=== PATIENT | female | born 1950 | race Caucasian/White ===

== ENCOUNTER 2024-11-26 13:11 | Emergency (ER) | payer MEDICARE, SELFPAY ==
[2024-11-26] VITALS (13 sets, daily range): BP systolic 155–201; BP diastolic 73–95; PULSE 76–99; RESP 12–18; TEMP 36.4–36.9; O2SAT 97–100
[2024-11-26 13:28] LABS: Add Manual Diff / Slide Review NO; Basophils Absolute Auto 0 /uL (0-100); Basophils Percent Auto 0.8 % (0-2); Eosinophils Absolute Auto 100 /uL (0-450); Hematocrit 36.9 % (36-46); Hemoglobin 12.9 g/dL (12.0-16.0); Lymphocytes Absolute Auto 1500 /uL (1100-4500); Lymphocytes Percent Auto 24.9 % (25-40); Mean Corpuscular HGB Conc 34.8 % (30-36); Mean Corpuscular Hemoglobin 29.9 PG (26-34); Monocytes Absolute Auto 400 /uL (0-900); Monocytes Percent Auto 6.5 % (3-14); Neutrophils Absolute Auto 4000 /uL (1500-7000); Neutrophils Percent Auto 66.8 % (50-75); Platelet Count 201 X10^3/uL (150-400); Red Cell Distribution Width 13.7 % (11.6-14.8); White Blood Cell Count 5.9 X10^3/uL (4.5-11.0)
--- NOTE | 2024-11-26 13:30 | EKG_ITS ---
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
[2024-11-26] MEDS: ONDANSETRON 4 MG/2 ML INJ IV (13:33)
[2024-11-26 13:44] LABS: Alanine Aminotransferase 22 IU/L (<35); Albumin 4.5 g/dL (3.5-5.0); Albumin Globulin Ratio 1.5 (1.0-2.8); Alkaline Phosphatase 141 U/L (38-126); Aspartate Aminotransferase 30 IU/L (14-36); BUN Creatinine Ratio 30.8 (6-22); Bilirubin Total 0.7 mg/dL (0.2-1.3); Blood Urea Nitrogen 28 mg/dL (7-17); Calcium 9.1 mg/dL (8.4-10.2); Carbon Dioxide 24 mmol/L (22-32); Chloride 102 mmol/L (98-107); Estimated Glomerular Filt Rate > 60 mL/min (>60); Globulin 3.1 g/dL (1.7-4.1); Glucose 161 mg/dL (70-99); HEMOLYSIS < 15 (0-50); Lipase 155 U/L (23-300); Potassium 3.8 mmol/L (3.4-5.1); Sodium 137 mmol/L (137-145); Total Protein 7.6 g/dL (6.3-8.2)
--- NOTE | 2024-11-26 14:15 | ED.NAVMDI ---
HPI - Nausea/Vomiting/Diarrhea General Chief complaint: Nausea/Vomiting/Diarrhea Stated complaint: N/V Time Seen by Provider: 11/26/24 13:25 Source: EMS Mode of arrival: EMS History of Present Illness HPI Narrative: Patient brought here by ambulance from [facility]. Patient has history of dementia. She is awake alert oriented x2. She is at baseline behavior according to [facility] nursing staff to give report to our nursing staff here in the department. Patient had episode of vomiting 30 minutes prior to arrival. No other complaints. At this time patient denies any chest pain abdominal pain back pain. No headache. She is resting comfortably. She is not agitated. Denies any problem urinating. No fall or injury according to [facility]. Related Data Previous Rx's Medication Instructions Recorded ondansetron 4 mg disintegrating 4 mg PO Q8H PRN nausea and 11/26/24 tablet vomiting #20 tabs Allergies Allergy/AdvReac Type Severity Reaction Status Date / Time cefaclor [From Ceclor] Allergy Unknown Verified 11/26/24 13:33 cephradine Allergy Unknown Verified 11/26/24 13:33 erythromycin base Allergy Unknown Verified 11/26/24 13:33 ibuprofen Allergy Unknown Verified 11/26/24 13:33 meperidine [From Demerol] Allergy Unknown Verified 11/26/24 13:33 naproxen Allergy Unknown Verified 11/26/24 13:33 oxycodone Allergy Unknown Verified 11/26/24 13:33 Penicillins Allergy Unknown Verified 11/26/24 13:33 spironolactone Allergy Unknown Verified 11/26/24 13:33 Sulfa (Sulfonamide Allergy Unknown Verified 11/26/24 13:33 Antibiotics) Review of Systems Review of Systems Narrative: GENERAL: Negative chills, fatigue, malaise, fever, sweats. HEENT: Negative sinus pain, ear pain, sore throat RESPIRATORY: Negative dyspnea, cough CARDIOVASCULAR: Negative chest pain, palpitations GASTROINTESTINAL: Positive vomiting, nausea, negative abdominal pain : Negative dysuria, frequency, hematuria MUSCULOSKELETAL: Negative muscle or bony pain SKIN: Negative rash, skin lesions NEUROLOGIC: Negative weakness, numbness ROS Unobtainable: All systems reviewed & are unremarkable except as noted in HPI and below Patient History Medical History (Updated 11/26/24 @ 16:54 by Subhash Bliss MD) Alzheimer dementia Exam Narrative Exam Narrative: GENERAL: in no distress, not toxic not dyspneic HEAD: Normocephalic. EYES: Pupils equal round ENT: Mucous membranes moist. NECK: Trachea midline. CARDIOVASCULAR: Regular rate and rhythm RESPIRATORY: Clear to auscultation. Breath sounds equal bilaterally. No wheezes, rales, or rhonchi. GASTROINTESTINAL: Abdomen soft, non-tender no CVA tenderness. No pain out of portion exam. EXTREMITIES: No gross deformities. BACK: No flank tenderness. NEURO: AOx1. Clear speech SKIN: Warm and dry PSYCH: Not anxious, is cooperative Initial Vital Signs Initial Vital Signs: Vital Signs Temperature 97.5 F L 11/26/24 13:16 Pulse Rate 82 11/26/24 13:16 Respiratory Rate 16 11/26/24 13:16 Blood Pressure 189/90 H 11/26/24 13:16 Pulse Oximetry 98 11/26/24 13:16 Oxygen Delivery Method Room Air 11/26/24 13:16 Course Orders Ordered: Discontinued Medications Fosfomycin Tromethamine (Fosfomycin 3 Gm Packet) 3 gm PO NOW ONE Stop: 11/26/24 16:51 Last Admin: 11/26/24 16:58 Dose: 3 gm Documented By: LENA Sodium Chloride (Normal Saline 0.9%) 1,000 mls @ 1,000 mls/hr IV BOLUS ONE Stop: 11/26/24 15:11 Last Infusion: 11/26/24 15:39 Dose: Infused Documented By: Admin: 11/26/24 14:19 Dose: 1,000 mls/hr Documented By: LENA Ondansetron HCl (Ondansetron 4 Mg/2 Ml Inj) 4 mg IV NOW PRN PRN Reason: Nausea And Vomiting Last Admin: 11/26/24 13:33 Dose: 4 mg Documented By: LENA Ondansetron HCl (Ondansetron 4 Mg Odt) 4 mg PO NOW PRN PRN Reason: Nausea And Vomiting Vital Signs Vital signs: Vital Signs - 8 hr 11/26/24 13:16 11/26/24 13:16 11/26/24 13:30 Temperature 97.5 F L Pulse Rate 82 79 76 Respiratory Rate 16 Blood Pressure 189/90 H Pulse Oximetry 98 98 98 Oxygen Delivery Method Room Air 11/26/24 13:30 11/26/24 14:00 11/26/24 14:00 Temperature Pulse Rate 78 Respiratory Rate 12 Blood Pressure 181/86 H 155/73 H Pulse Oximetry 98 Oxygen Delivery Method 11/26/24 14:30 11/26/24 14:30 11/26/24 14:47 Temperature Pulse Rate 95 H 93 H Respiratory Rate 14 Blood Pressure 160/91 H Pulse Oximetry 99 100 Oxygen Delivery Method 11/26/24 14:57 11/26/24 14:57 11/26/24 15:00 Temperature Pulse Rate 89 79 Respiratory Rate Blood Pressure 181/81 H Pulse Oximetry 98 98 Oxygen Delivery Method 11/26/24 15:00 11/26/24 15:30 Temperature Pulse Rate 86 Respiratory Rate Blood Pressure 174/84 H Pulse Oximetry 99 Oxygen Delivery Method MDM - Nausea/Vomiting/Diarrhea Lab Data 11/26/24 13:20 11/26/24 13:20 Labs: Lab Results 11/26/24 11/26/24 11/26/24 Range/Units 13:20 13:25 14:20 WBC 5.9 (4.5-11.0) X10^3/uL RBC 4.30 (4.0-5.2) X10^6/uL Hgb 12.9 (12.0-16.0) g/dL Hct 36.9 (36-46) % MCV 86.0 (80-100) fL MCH 29.9 (26-34) PG MCHC 34.8 (30-36) % RDW 13.7 (11.6-14.8) % Plt Count 201 (150-400) X10^3/uL Neut % (Auto) 66.8 (50-75) % Lymph % (Auto) 24.9 L (25-40) % [place] % (Auto) 6.5 (3-14) % Eos % (Auto) 1.0 L (2-4) % Baso % (Auto) 0.8 (0-2) % Neut # (Auto) 4000 (1222-1297) /uL Lymph # (Auto) 1500 (9044-8468) /uL [place] # (Auto) 400 (0-900) /uL Eos # (Auto) 100 (0-450) /uL Baso # (Auto) 0 (0-100) /uL Sodium 137 (137-145) mmol/L Potassium 3.8 (3.4-5.1) mmol/L Chloride 102 (98-107) mmol/L Carbon Dioxide 24 (22-32) mmol/L BUN 28 H (7-17) mg/dL Creatinine 0.91 (0.52-1.04) mg/dL Estimated GFR > 60 (>60) mL/min BUN/Creatinine Ratio 30.8 H (6-22) Glucose 161 H (70-99) mg/dL Calcium 9.1 (8.4-10.2) mg/dL Total Bilirubin 0.7 (0.2-1.3) mg/dL AST 30 (14-36) IU/L ALT 22 (<35) IU/L Alkaline Phosphatase 141 H (38-126) U/L Total Creatine Kinase 92 (30-135) U/L Troponin I < 0.012 (0.01-0.034) ng/mL Total Protein 7.6 (6.3-8.2) g/dL Albumin 4.5 (3.5-5.0) g/dL Globulin 3.1 (1.7-4.1) g/dL Albumin/Globulin Ratio 1.5 (1.0-2.8) Lipase 155 (23-300) U/L Urine Color Urine Appearance Urine pH (4.5-8.0) Ur Specific [place] (1.000-1.035) Urine Protein (Negative) Urine Glucose (UA) (Negative) g/dL Urine Ketones (NEGATIVE) Urine Occult Blood (Negative) Urine Nitrate (Negative) Urine Bilirubin (NEGATIVE) Urine Urobilinogen (0.2) E.U./dL Ur Leukocyte Esterase (NEGATIVE) Urine RBC (0-5/HPF) Urine WBC (0-5/HPF) Ur Squamous Epith Cells (0-5/HPF) Urine Bacteria (None) Ur Culture Indicated? Vol Urine Centrifuged Chlamy pneumoniae PCR Not detected (Not Detect) Adenovirus (PCR) Not detected (Not Detect) B. pertussis DNA (PCR) Not detected (Not Detect) B.parapertussis DNA PCR Not detected (Not Detecte) Coronavirus OC43 (PCR) Not detected (Not Detect) Coronavirus HKU1 (PCR) Not detected (Not Detect) Coronavirus 229E (PCR) Not detected (Not Detect) SARS-CoV-2 (PCR) Not detected (Not Detecte) Coronavirus NL63 (PCR) Not detected (Not Detect) Human Metapneumovir PCR Not detected (Not Detect) Influenza Type A (PCR) Not detected (Not Detect) Influenza Type B (PCR) Not detected (Not Detect) M. pneumoniae (PCR) Not detected (Not Detect) Parainfluenza 1 (PCR) Not detected (Not Detect) Parainfluenza 2 (PCR) Not detected (Not Detect) Parainfluenza 3 (PCR) Not detected (Not Detect) Parainfluenza 4 (PCR) Not detected (Not Detect) RSV (PCR) Not detected (Not Detect) Entero/Rhino (PCR) Not detected (Not Detect) 11/26/24 Range/Units 15:50 WBC (4.5-11.0) X10^3/uL RBC (4.0-5.2) X10^6/uL Hgb (12.0-16.0) g/dL Hct (36-46) % MCV (80-100) fL MCH (26-34) PG MCHC (30-36) % RDW (11.6-14.8) % Plt Count (150-400) X10^3/uL Neut % (Auto) (50-75) % Lymph % (Auto) (25-40) % [place] % (Auto) (3-14) % Eos % (Auto) (2-4) % Baso % (Auto) (0-2) % Neut # (Auto) (5185-9305) /uL Lymph # (Auto) (2545-3921) /uL [place] # (Auto) (0-900) /uL Eos # (Auto) (0-450) /uL Baso # (Auto) (0-100) /uL Sodium (137-145) mmol/L Potassium (3.4-5.1) mmol/L Chloride (98-107) mmol/L Carbon Dioxide (22-32) mmol/L BUN (7-17) mg/dL Creatinine (0.52-1.04) mg/dL Estimated GFR (>60) mL/min BUN/Creatinine Ratio (6-22) Glucose (70-99) mg/dL Calcium (8.4-10.2) mg/dL Total Bilirubin (0.2-1.3) mg/dL AST (14-36) IU/L ALT (<35) IU/L Alkaline Phosphatase (38-126) U/L Total Creatine Kinase (30-135) U/L Troponin I (0.01-0.034) ng/mL Total Protein (6.3-8.2) g/dL Albumin (3.5-5.0) g/dL Globulin (1.7-4.1) g/dL Albumin/Globulin Ratio (1.0-2.8) Lipase (23-300) U/L Urine Color Yellow Urine Appearance Sl cloudy Urine pH 7.5 (4.5-8.0) Ur Specific [place] 1.015 (1.000-1.035) Urine Protein Negative (Negative) Urine Glucose (UA) Negative (Negative) g/dL Urine Ketones Trace H (NEGATIVE) Urine Occult Blood Trace-intact (Negative) Urine Nitrate Positive H (Negative) Urine Bilirubin Negative (NEGATIVE) Urine Urobilinogen 0.2 (0.2) E.U./dL Ur Leukocyte Esterase 1+ H (NEGATIVE) Urine RBC 0-1/hpf (0-5/HPF) Urine WBC 10-30/hpf H (0-5/HPF) Ur Squamous Epith Cells 0-1 /hpf (0-5/HPF) Urine Bacteria Many (>30) H (None) Ur Culture Indicated? Specimen cultured Vol Urine Centrifuged 10ml (spun) Chlamy pneumoniae PCR (Not Detect) Adenovirus (PCR) (Not Detect) B. pertussis DNA (PCR) (Not Detect) B.parapertussis DNA PCR (Not Detecte) Coronavirus OC43 (PCR) (Not Detect) Coronavirus HKU1 (PCR) (Not Detect) Coronavirus 229E (PCR) (Not Detect) SARS-CoV-2 (PCR) (Not Detecte) Coronavirus NL63 (PCR) (Not Detect) Human Metapneumovir PCR (Not Detect) Influenza Type A (PCR) (Not Detect) Influenza Type B (PCR) (Not Detect) M. pneumoniae (PCR) (Not Detect) Parainfluenza 1 (PCR) (Not Detect) Parainfluenza 2 (PCR) (Not Detect) Parainfluenza 3 (PCR) (Not Detect) Parainfluenza 4 (PCR) (Not Detect) RSV (PCR) (Not Detect) Entero/Rhino (PCR) (Not Detect) Imaging Data CT chest abdomen and pelvis: Radiologist's Impression: [address] [address] [address] Scan Report Signed Patient: Lottie Pinedo I MR#: [id number] : 1950 Acct:[id number] Age/Sex: 74 / F Date of Service: 11/26/24 Loc: ED Accession Number: [id number] Procedure: CT chest abd pel w con Ordering Provider: Subhash Bliss MD PROCEDURE: CT CHEST ABD PEL W CON INDICATIONS: Sepsis TECHNIQUE: After the administration of intravenous contrast, 5 mm thick sections acquired from the lung apices to the symphysis. 5 mm coronal and sagittal reformats were performed, with additional 7 mm MIP reformats through the lungs. For radiation dose reduction, the following was used: automated exposure control, adjustment of mA and/or kV according to patient size. COMPARISON: None. FINDINGS: Image quality: Excellent. CHEST: Lower Neck: No enlarged lymph nodes. Thyroid: Left thyroid nodule measuring 2.7 cm Axillae: No enlarged lymph nodes. Chest Wall: Unremarkable. Lungs and Pleura: No pneumothorax or pleural effusions. No focal pulmonary consolidations. Scattered pulmonary micro nodules measuring 3 mm or less. Heart: Heart size is normal. Small pericardial effusion. Thoracic Vessels: The aorta and pulmonary arteries demonstrate normal size. Atherosclerotic vascular calcifications. Mediastinum and [place]: No enlarged lymph nodes. Esophagus: Possible wall thickening of the GE junction. Small hiatal hernia. ABDOMEN: Liver: No solid mass. Gallbladder: Surgically absent Biliary ducts: No biliary dilation. Pancreas: No ductal dilation. Spleen: Size is within normal limits. Adrenal Glands: No adrenal nodules. Kidneys and Ureters: No hydronephrosis. No solid mass. No complex renal cystic lesion which requires follow up. Stomach and Bowel: Normal colonic caliber, without significant wall thickening. Rectal stool ball measuring up to 7 cm. Significant diverticulosis without definite findings of diverticulitis. Peritoneum: No abnormal intraperitoneal fluid. No free air. Ventral Wall: No significant ventral hernia. Abdominal Nodes: No retroperitoneal or mesenteric adenopathy by size criteria. Vessels: Aorta and inferior vena cava are normal in size. Atherosclerotic vascular calcifications. 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 PELVIS: Pelvic Organs: Unremarkable. Bladder: Urinary bladder wall thickening, asymmetric the right. Pelvic Nodes: No enlarged lymph nodes. Miscellaneous: No inguinal hernias are seen. Bones: No aggressive osseous abnormality. IMPRESSION: 1. Urinary bladder wall thickening, asymmetric on the right side. Recommend correlation for cystitis. 2. Rectal stool ball measuring up to 7 cm, correlate for impaction. 3. Significant diverticulosis without evidence of diverticulitis. 4. Possible wall thickening at the GE junction. This may be from gastric reflux, recommend clinical correlation. Underlying neoplastic process is not definitively excluded. 5. Left thyroid nodule measuring 2.7 cm. Recommend dedicated nonurgent thyroid ultrasound for further evaluation at clinical discretion given advanced dementia. Dictated by: Lucas Simmons M.D. on 11/26/2024 at 15:25 Approved by: Lucas Simmons M.D. on 11/26/2024 at 15:35 [facility] Narrative Medical decision making narrative: Patient brought here by ambulance from [facility]. Patient has history of dementia. She is awake alert oriented x2. She is at baseline behavior according to [facility] nursing staff to give report to our nursing staff here in the department. Patient had episode of vomiting 30 minutes prior to arrival. No other complaints. At this time patient denies any chest pain abdominal pain back pain. No headache. She is resting comfortably. She is not agitated. Denies any problem urinating. No fall or injury according to [facility]. After history and exam, [facility] Medical records reviewed: No recent visit for this complaint Differential considered: Includes but not limited to STEMI non-STEMI cholelithiasis cholecystitis appendicitis pancreatitis viral gastritis bowel obstruction Lab Test results independently reviewed as above. Pertinent findings: WBC 5.9 hemoglobin 12.9 sodium 137 potassium 3.8 BUN 28 creatinine 0.91 GFR greater than 60 AST 30 ALT 22 lipase 155, urinalysis positive leukocyte positive nitrite positive WBC positive bacteria Independently reviewed EKG normal sinus rhythm normal EKG rate 76 Imaging studies independently reviewed: CT chest abdomen pelvis likely cystitis Consultations: None indicated at this time Re-evaluations: 4:51 p.m.. Patient does have dementia. She is cooperative. Not agitated. We will provide fosfomycin for UTI treatment here. One time dose treatment she would be shipped patient. No active vomiting at this time. Prescription for Zofran will be provided. Discussion: Appropriate for discharge home. Exam is reassuring laboratory studies are reassuring. Fosfomycin for UTI provided. Likely source of vomiting. Patient not toxic at discharge. Diagnosis: Acute UTI Discharge Plan Departure Patient Disposition: Home Clinical Impression: Acute vomiting, Acute UTI Instructions: DI for Urinary Tract Infection (UTI), DI for Vomiting -- Adult Activity Restrictions/Additional Instructions: You have been given single dose of antibiotic to treat for urinary tract infection. It is a 1 time dose medication fosfomycin. Nausea medication Zofran has been prescribed for you and printed for you. Please keep well hydrated. See family doctor this week for re-evaluation. Return if worse if any questions or concerns Prescriptions: New ondansetron 4 mg tablet,disintegrating 4 mg PO Q8H PRN (Reason: nausea and vomiting) Qty: 20 0RF Stand Alone Forms: Patient Portal/API/Survey
[2024-11-26] MEDS: SODIUM CHLORIDE 0.9% 1,000 ML 1000 ML IV (14:19)
[2024-11-26 14:23] LABS: Creatine Kinase 92 U/L (30-135)
[2024-11-26 14:36] LABS: Troponin I < 0.012 ng/mL (0.01-0.034)
[2024-11-26 15:18] LABS: Adenovirus Not Detected (Not Detect); B. parapertussis Not Detected (Not Detecte); Bordetella pertussis Not Detected (Not Detect); Chlamydophila pneumoniae Not Detected (Not Detect); Coronavirus 229E Not Detected (Not Detect); Coronavirus HKU1 Not Detected (Not Detect); Coronavirus NL 63 Not Detected (Not Detect); Coronavirus OC43 Not Detected (Not Detect); Human Metapneumovirus Not Detected (Not Detect); Human Rhinovirus/Enterovirus Not Detected (Not Detect); Influenza A Not Detected (Not Detect); Influenza B Not Detected (Not Detect); Mycoplasma pneumoniae Not Detected (Not Detect); Parainfluenza Virus 1 Not Detected (Not Detect); Parainfluenza Virus 2 Not Detected (Not Detect); Parainfluenza Virus 3 Not Detected (Not Detect); Parainfluenza Virus 4 Not Detected (Not Detect); Respiratory Syncytial Virus Not Detected (Not Detect); SARS- CoV-2 Not Detected (Not Detecte)
[2024-11-26 16:34] LABS: Appearance Urine UA SL CLOUDY; Bilirubin Urine UA NEGATIVE (NEGATIVE); Color Urine UA YELLOW; Glucose Urine UA NEGATIVE (Negative); Ketones Urine UA TRACE (NEGATIVE); Nitrite Urine UA POSITIVE (Negative); Occult Blood Urine UA TRACE-INTACT (Negative); Protein Urine UA NEGATIVE (Negative); Specific Gravity Urine UA 1.015 (1.000-1.035); Urobilinogen Urine UA 0.2 E.U./dL (0.2)
[2024-11-26 16:36] LABS: Leukocyte Esterase Urine UA 1+ (NEGATIVE); pH Urine UA 7.5 (4.5-8.0)
[2024-11-26 16:38] LABS: Bacteria Urine Many (>30); Culture Indicated Urine Specimen Cultured; RBC Urine 0-1/HPF (0-5/HPF); Squamous Epithelial Cell Urine 0-1 /HPF (0-5/HPF); Urine Volume 10mL (spun); WBC Urine 10-30/HPF (0-5/HPF)
[2024-11-26] MEDS: FOSFOMYCIN 3 GM PACKET PO (16:58)
--- NOTE | 2024-11-26 18:14 | PC.NURSE ---
Pt has been discharge, waiting for staff at [facility] to pick her up for the last 45 min
== END 2024-11-26 18:18 | disposition home or self-care (01) ==
PROVIDERS: Emergency Provider Emergency Medicine
DX: R11.10 Vomiting, unspecified (principal); N39.0 Urinary tract infection, site not specified; F03.90 Unspecified dementia, unspecified severity, without behavioral disturbance, psychotic disturbance, mood disturbance, and anxiety
CPT/HCPCS: 36415; 51701; 71260; 74177; 80053; 81001; 82550; 83690; 84484; 85025; 87077; 87086; 87186; 87633; 93005; 96361; 96374; 99284; J2405; Q9967

== ENCOUNTER → 2025-03-25 22:14 | Outpatient (CLI) | payer MEDICARE, SELFPAY ==
[2025-03-25 22:31] LABS: Bilirubin Urine UA NEGATIVE (NEGATIVE); Color Urine UA YELLOW; Glucose Urine UA NEGATIVE (Negative); Ketones Urine UA TRACE (NEGATIVE); Leukocyte Esterase Urine UA 3+ (NEGATIVE); Nitrite Urine UA POSITIVE (Negative); Occult Blood Urine UA 2+ (Negative); Protein Urine UA 2+ (Negative); Specific Gravity Urine UA 1.015 (1.000-1.035); Urobilinogen Urine UA 1.0 E.U./dL (0.2)
[2025-03-25 22:33] LABS: Appearance Urine UA Cloudy; pH Urine UA 6.0 (4.5-8.0)
[2025-03-25 22:35] LABS: Culture Indicated Urine Specimen Cultured
== END ==
PROVIDERS: Referring Provider Registered Nurse; Visit Provider Registered Nurse
DX: N39.0 Urinary tract infection, site not specified (principal)
CPT/HCPCS: 81001; 87077; 87086; 87186